=== PATIENT | female | born 1960 | race Caucasian/White ===

== ENCOUNTER 2017-01-15 16:47 | Observation (INO) | payer OTHER ==
[~2017-01-15] VITALS: Ht 165.1 cm; Wt 56.0 kg
[~2017-01-15 16:47] MED LIST: AUGMENTIN875 MG PO; DONNATAL1 TABLET PO; PREDNISONE50 MG PO
[2017-01-15 18:58] LABS: HEMATOCRIT 41.3 % (36.0-46.0); MCH 29.1 PG (29.0-34.0); MEAN PLAT.VOLUME 10.3 uM^3 (9.5-12.4); PLATELET COUNT 284 K/uL (156-360); RBC DIS.WIDTH-CV 11.9 % (11.8-14.6); RBC DIS.WIDTH-SD 39.7 % (39-53); RED BLOOD COUNT 4.54 M/uL (3.80-5.20); WHITE BLOOD COUNT 4.2 K/uL (4.1-10.2)
[2017-01-15 19:08] LABS: CHLORIDE 106 mEq/L (99-109); POTASSIUM 4.8 mEq/L (3.7-5.4); SODIUM 142 mEq/L (136-147)
[2017-01-15 19:10] LABS: GLUCOSE 93 mg/dL (70-99)
[2017-01-15 19:11] LABS: ANION GAP 7 MEQ/L (2-14)
[2017-01-15 19:14] LABS: GFR ESTIMATE (CALCULATED) > 59 mL/min/
[2017-01-15 19:15] LABS: UREA NITROGEN (BUN) 16 mg/dL (9-23)
[2017-01-15 21:09] LABS: TROP-I INTERPRETATION NEGATIVE; TROPONIN-I < 0.01 ng/mL (0.0-0.30)
[2017-01-15] MEDS ORDERED: PREMPRO 0.31 TABLET PO (21:20)
[2017-01-15] MEDS ORDERED: GABAPENTIN100 MG PO (21:20)
[2017-01-15] MEDS ORDERED: CENTRUM SILVER1 EAC4 PO (21:21)
[2017-01-15] MEDS ORDERED: ALIGN10.5 MG PO (21:22)
[2017-01-15] MEDS ORDERED: ALLEGRA60 MG PO (21:23)
[2017-01-15] MEDS ORDERED: FLONASE16 G1 BOTH NARES (21:24)
[2017-01-15] MEDS ORDERED: COLACE CLEAR50 MG PO (21:24)
[2017-01-16 00:53] LABS: PROTHROMBIN TIME 10.3 (9.2-11.2); PTT 25.9 (25-32)
[2017-01-16 01:05] VITALS: BP 96/51
[2017-01-16 01:50] LABS: HDL CHOLESTEROL 60 MG/DL (Desirable>=50); LDL CHOLESTEROL 89 mg/dL (Desirable<100); NON-HDL CHOLESTEROL 107 mg/dL (Desirable<160); TOTAL CHOLESTEROL 167 mg/dL (Desirable<200); TRIGLYCERIDES 92 MG/DL (Normal: <150)
[2017-01-16 04:33] VITALS: BP 109/55
[2017-01-16 07:10] VITALS: BP 101/59
[2017-01-16 07:29] LABS: Estimated Average Glucose 100 mg/dL (70-123); HEMOGLOBIN A1c (GLYCOHEMOGLOB) 5.1 % HGB (Below 5.7)
[2017-01-16 08:37] LABS: TROP-I INTERPRETATION NEGATIVE; TROPONIN-I < 0.01 ng/mL (0.0-0.30)
[2017-01-16 12:56] VITALS: BP 97/52
[2017-01-16 13:04] LABS: TROP-I INTERPRETATION NEGATIVE; TROPONIN-I < 0.01 ng/mL (0.0-0.30)
== END 2017-01-16 16:16 | disposition home or self-care (01) ==
LOC: EME 16:47 → 5WEST 22:48 → EDOF 22:48 → 5WEST 01-16 00:40
PROVIDERS: Emergency Medicine; Hospitalist
DX: G50.9 Disorder of trigeminal nerve, unspecified (principal); G93.5 Compression of brain; G62.9 Polyneuropathy, unspecified; R41.0 Disorientation, unspecified; T42.75XA Adverse effect of unspecified antiepileptic and sedative-hypnotic drugs, initial encounter; G40.909 Epilepsy, unspecified, not intractable, without status epilepticus; R42 Dizziness and giddiness; R29.810 Facial weakness; H53.8 Other visual disturbances; R20.2 Paresthesia of skin
CPT/HCPCS: 70450; 70551; 71020; 80048; 80061; 83036; 84443; 84484; 85027; 85379; 85610; 85730; 93005; 93880; 99281; 99285; G0378; J1650